=== PATIENT | female | born 1985 | race Caucasian/White ===

== ENCOUNTER → 2020-07-08 10:35 | Outpatient (BNVA) | payer SELFPAY | PROVIDERS: Visit Provider Physician Assistant Medical | DX: Z11.1 Encounter for screening for respiratory tuberculosis (principal); Z79.891 Long term (current) use of opiate analgesic ==

== ENCOUNTER 2024-02-24 08:15 | Emergency (ER) | payer OTHER, SELFPAY ==
--- NOTE | ~2024-02-24 | XR_ITS ---
EXAMINATION: XR LUMBAR SPINE 2-3 VIEWS HISTORY: lower back pain COMPARISON: There are no prior studies for comparison. FINDINGS: AP, lateral, and coned down views of the lumbar spine are submitted. Osseous mineralization is normal. Five nonrib-bearing lumbar vertebral bodies are identified, maintaining normal height and alignment without evidence of fracture or spondylolisthesis. There is minimal anterior spurring at L5-S1. The intervertebral disc spaces are preserved. The posterior elements are intact. The visualized paraspinal soft tissues are unremarkable. XR/XR lumbar spine 2-3V IMPRESSION: Minimal degenerative changes at L5-S1. Otherwise unremarkable examination of the lumbar spine. Electronically signed by: Salvador Lee MD 02/24/2024 09:51 AM EST
[2024-02-24 08:29] VITALS: BP 113/79; PULSE 100; RESP 16; TEMP 37.2; O2SAT 100; BMI 20.4
[2024-02-24] MEDS: Lidocaine 4 % Patch ADH..PATCH 1 PATCH TRANSDERMA (09:40)
[2024-02-24] MEDS: Ketorolac Tromethamine 30 MG/ML VIAL IM (09:41)
--- NOTE | 2024-02-24 10:05 | ED_ITS ---
HPI - General Adult General Chief complaint: Back Pain/Injury Stated complaint: back pain no inj Time Seen by Provider: 02/24/24 09:13 Source: patient Mode of arrival: ambulatory Limitations: no limitations History of Present Illness ED Provider: CONNER Campa HPI narrative: This is a 39-year-old female presenting to the emergency department with complaints of atraumatic low back pain without radiation. Patient reports pain is worse with movement better at rest. It started after she got out of the shower on Tuesday and has been present ever since. She denies any history of back pain in the past. Pain is significant and interfering with activities of daily living. She denies numbness, tingling, weakness to lower extremities, urinary/bowel incontinence/retention, fevers, chills, recent illness. Related Data Previous Rx's ?Medication ?Instructions ?Recorded ketorolac 10 mg tablet 10 mg PO TID PRN pain 5 days #15 02/24/24 tabs lidocaine 5 % topical patch 1 patch topical DAILY PRN pain #15 02/24/24 ea prednisone 20 mg tablet 40 mg (2 x 20 mg) PO DAILY 5 days 02/24/24 #10 tabs Allergies Allergy/AdvReac Type Severity Reaction Status Date / Time tramadol Allergy Hives Verified 02/24/24 08:30 Review of Systems Review of Systems: Yes all other systems are reviewed and are negative PMFSH Past Medical History Attestation statement: The following information was validated with the patient. Source: old records reviewed and nursing notes reviewed Physical Exam ED Vital Signs: Vital Signs - 24 hr 02/24/24 08:29 02/24/24 12:24 Temperature 98.9 F 98.9 F Pulse Rate 100 100 Respiratory Rate 16 16 Blood Pressure 113/79 113/79 Pulse Oximetry 100 100 Oxygen Delivery Method Room Air Room Air BMI result Body Mass Index 20.4 vss Appearance: Alert.? Oriented X3.? No acute distress.? Head: Normocephalic, atraumatic, no step-offs or deformities Eyes: Pupils equal, round and reactive to light.? CVS: Normal heart rate and rhythm.? Pulses normal.? Respiratory: No respiratory distress.? Breath sounds normal.? Abdomen: Soft and nontender.? Skin: Skin warm and dry.? Normal skin color.? Normal skin turgor.? Extremities: No lower extremity edema.? No calf ttp. 5/5 strength to bilateral upper and lower extremities Back: No midline tenderness, no C-spine tenderness, full range of motion, no CVA tenderness bilaterally + lumbosacral paraspinous tenderness bilaterally and pain overlying transverse process and facet joints around L4-L5. Neuro: Oriented X 3.? No motor deficit.? No sensory deficit. CN 2-12 intact Course Reevaluation(s) Reevaluation #1: Physical exam with minimal degenerative changes at L5 and S1 otherwise unremarkable exam of the lumbar spine this is consistent with location of hansa ent's pain. Concerning for facet mediated pain versus lumbar strain. No signs of cauda equina. Or cord compression. Patient is giving us a urine sample. Urine results pending. Time: 10:24 Reevaluation #2: Patient does not feel like she can give us a urine. She feels better. She reports her pain is now a 3 to 4/10. Before it was much higher. She is able to ambulate without difficulty. Will discharge home on Toradol, prednisone. Educated patient on diagnosis and treatment plan, answered all question, patient verbalizes understanding. At this time patient will be discharged home, advised to return with new or worsening symptoms. Educated on worrisome signs and symptoms and when to return. At this time I feel comfortable discharge home. Time: 12:45 Medications Administered Discontinued Medications Generic Name Dose Route Start Last Admin Trade Name Zaina PRN Reason Stop Dose Admin Ketorolac Tromethamine 30 mg 02/24/24 09:14 02/24/24 09:41 Ketorolac Tromethamine 30 Mg/Ml Vial IM 02/24/24 09:15 30 mg ONCE ONE Administration Lidocaine 1 patch 02/24/24 09:14 02/24/24 09:40 Lidocaine 4 % Patch Adh..Patch TRANSDERMA 02/24/24 09:15 1 patch ONCE ONE Administration Protocol Medical Decision Making Medical Decision Making MDM Narrative: 39-year-old female presents with atraumatic back pain ongoing since Tuesday. No history of this in the past. No red flag symptoms. Physical exam lumbosacral paraspinous tenderness bilaterally and pain overlying transverse process and facet joints around L4-L5. History and physical exam concerning for facet mediated pain versus lumbago. No signs of lumbar radiculopathy, cord compression, cauda equina, epidural abscess. Plan Toradol, Lidoderm patch, x-ray. Differential Diagnosis Differential Diagnoses: The differential diagnosis associated with the presentation includes (History and physical exam concerning for facet mediated pain versus lumbago. No signs of lumbar radiculopathy, cord compression, cauda equina, epidural abscess.) Admission/Observation Consideration of admission/observation: Escalation of care including admission/observation considered Independent Interpretation I performed an independent interpretation of an: Plain X-Ray Radiology Impression Discussion of test interpretation with radiology: I have reviewed the radiologist's reading. Critical Care Time Critical Care Time Critical Care Time: No Discharge Plan Discharge Clinical Impression: Strain of lumbar region Patient Disposition: Home, Self-Care Instructions: Low Back Strain (ED), Back Pain (ED) Additional Instructions: Take your medications as prescribed. If you were prescribed antibiotics today, it is important that you take your medication to their entirety, do not skip any doses, do not finish them early. Follow-up with your primary care provider this week. Return to the emergency department with new or worsening symptoms. Such as fevers, chills, chest pain, shortness of breath, nausea, vomiting, dizziness, headache, vision changes, lethargy In case of emergency call 911 Toradol has been sent to your pharmacy, you tolerated this well in the department. Please take this as prescribed do not take this with ibuprofen, or other NSAIDs, do not mix this with alcohol. Side effects of this medication including increased risk for bleeding and possible kidney injury. XR/XR lumbar spine 2-3V IMPRESSION: Minimal degenerative changes at L5-S1. Otherwise unremarkable examination of the lumbar spine. Prescriptions: New prednisone 20 mg tablet 40 mg PO DAILY 5 Days Qty: 10 0RF ketorolac 10 mg tablet 10 mg PO TID PRN (Reason: pain) 5 Days Qty: 15 0RF Rx Instructions: Tolerated IM or IV in department lidocaine 5 % adhesive patch,medicated 1 patch topical DAILY PRN (Reason: pain) Qty: 15 0RF Rx Instructions: leave on most painful area for up to 12 hrs Referrals: [facility] [Provider Group] - 2 days Physician,None [Primary Care Provider] - 2 days Stand Alone Forms: Work/School Release Interventions: ED Discharge Assessment Last Done: 02/24/24 12:24 Discharge Date/Time: 02/24/24 12:38 Print Language: Swedish
[2024-02-24 12:24] VITALS: BP 113/79; PULSE 100; RESP 16; TEMP 37.2; O2SAT 100
== END 2024-02-24 12:38 | disposition home or self-care (01) ==
PROVIDERS: Emergency Provider Emergency Medicine
DX: S39.012A Strain of muscle, fascia and tendon of lower back, initial encounter (principal); W19.XXXA Unspecified fall, initial encounter; Y93.E1 Activity, personal bathing and showering; Y92.9 Unspecified place or not applicable; Y99.8 Other external cause status
CPT/HCPCS: 72100; 99283; J1885

== ENCOUNTER → 2024-02-24 09:14 | Outpatient (BNV) | payer OTHER, SELFPAY | PROVIDERS: Emergency Provider Emergency Medicine; Visit Provider Radiology Diagnostic Radiology | DX: M54.50 Low back pain, unspecified (principal) | CPT/HCPCS: 72100 ==